=== PATIENT | male | born 1940 | race African-American/Black ===

== ENCOUNTER 2018-11-02 17:31 | Emergency (ER) | payer OTHER ==
[~2018-11-02] VITALS: Ht 175.2 cm; Wt 95.7 kg
[2018-11-02] MEDS ORDERED: POTASSIUM20 PO (17:47)
[2018-11-02] MEDS ORDERED: ALOGLIPTIN12.5 MG PO (17:47)
[2018-11-02] MEDS ORDERED: TADALAFIL5 M1 PO (17:48)
[2018-11-02 17:49] LABS: HEMATOCRIT 25.2 % (42.0-52.0); HEMOGLOBIN 8.4 gm/dL (14.0-18.0); MCH 27.6 pg (26.0-34.0); MCHC 33.4 g/dL (28.0-37.0); MCV 82.5 fL (80.0-100.0); PLATELET COUNT 174 thou/uL (150-400); RBC 3.06 mil/uL (4.50-6.00); RDW 23.4 % (10.5-14.5); WBC 4.2 thou/uL (4.0-11.0)
[2018-11-02] MEDS ORDERED: LIPITOR80 MG PO (17:49)
[2018-11-02] MEDS ORDERED: ALLOPURINOL 30300 M1 PO (17:49)
[2018-11-02] MEDS ORDERED: VITAMIN D31000 UNIT PO (17:49)
[2018-11-02] MEDS ORDERED: PLAVIX 75 MG TA75 M1 PO (17:49)
[2018-11-02 18:03] LABS: ALBUMIN 2.3 g/dL (3.4-5.0); ANION GAP 14 mmol/L (7-16); BUN 24 mg/dL (7-18); CALCIUM 7.3 mg/dL (8.5-10.1); CHLORIDE 111 mmol/L (98-107); CO2 19 mmol/L (21-32); CREATININE 1.7 mg/dL (0.7-1.3); GLUCOSE 162 mg/dL (74-106); SGOT 26 U/L (15-37); SGPT 25 U/L (30-65); SODIUM 144 mmol/L (136-145); TOTAL BILIRUBIN 0.1 mg/dL (<0.1-1.0); TOTAL PROTEIN 5.4 g/dL (6.4-8.2); TROPONIN-I <0.06 ng/mL (<0.06)
[2018-11-02 18:05] LABS: POTASSIUM 2.4 mmol/L (3.5-5.1)
[2018-11-02 18:19] LABS: ABSOLUTE NEUTROPHILS 2.6 thou/uL (1.4-8.2)
[2018-11-02 18:21] LABS: ANISOCYTOSIS 3+; BURR CELLS OCCASIONAL; MACROCYTES 1+
[2018-11-02 20:10] LABS: URINE BILIRUBIN NEGATIVE (Negative); URINE BLOOD TRACE (Negative); URINE CLARITY CLEAR; URINE COLOR YELLOW; URINE GLUCOSE-RANDOM* 2+ (Negative); URINE KETONES NEGATIVE (Negative); URINE LEUKOCYTES-REFLEX NEGATIVE (Negative); URINE NITRITE-REFLEX NEGATIVE (Negative); URINE PROTEIN (DIPSTICK) TRACE (Negative); URINE SPECIFIC GRAVITY 1.025 (1.005-1.035); URINE UROBILINOGEN 0.2 E.U./dl (0.2-1.0)
[2018-11-02 21:30] VITALS: BP 152/68
--- NOTE | 2018-11-03 08:35 | EKG ---
[place] [place] [address] ELECTROCARDIOGRAM REPORT Name: NICK SANTANA Room #: DEP Chepe#: [id number] ������������������ Admission: 11/02/18 ������������������ Attend Phys: Discharge: 11/02/18 ������������������ Date of : 36 Report #: [id number] ����������������������������������������������������������������� [id number] THIS REPORT FOR: //name// 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1940 Requested By: Zach Romero Order Number: [id number] MD: Tevin Muller Measurements Intervals [place] Rate: 74 P: 169 LA: 319 QRS: -50 QRSD: 152 T: 23 QT: 408 QTc: 453 Interpretive Statements Sinus or ectopic atrial rhythm Prolonged LA interval RBBB and LAFB No previous ECG available for comparison Electronically Signed On 11-03-2018 8:34:54 CDT by Tevin Muller [email or web address] ��������������������������������������������� <ELECTRONICALLY SIGNED> ���������������������������������������� By: Tevin Muller MD, [facility] ��������������������������������������������� 11/03/18 0834 1735 1735 Tevin Muller MD, FACC /EPI
== END 2018-11-02 21:31 | disposition home or self-care (01) ==
LOC: ER 17:31
PROVIDERS: Physician Assistant
DX: S00.83XA Contusion of other part of head, initial encounter (principal); H11.32 Conjunctival hemorrhage, left eye; E86.0 Dehydration; E87.6 Hypokalemia; Z88.8 Allergy status to other drugs, medicaments and biological substances; R42 Dizziness and giddiness; Z88.6 Allergy status to analgesic agent; Z85.038 Personal history of other malignant neoplasm of large intestine; W10.9XXA Fall (on) (from) unspecified stairs and steps, initial encounter; Y92.89 Other specified places as the place of occurrence of the external cause; Y93.89 Activity, other specified; Y99.8 Other external cause status